=== PATIENT | female | born 1995 | race African-American/Black ===

== ENCOUNTER 2016-05-17 07:27 | Emergency (ER) | payer OTHER ==
[~2016-05-17] VITALS: Ht 165.1 cm; Wt 61.2 kg
[2016-05-17] MEDS ORDERED: NS 1,000 ML IV ONE (08:00)
[2016-05-17] MEDS ORDERED: METOCLOPRAMIDE INJ 10MG/2ML VIAL (J2765) IV ONE (08:00)
[2016-05-17] MEDS ORDERED: MORPHINE 4 MG/ML 1ML SYRINGE IV PRN (08:00)
[2016-05-17 08:33] LABS: BASO % 0.1 % (0.0-1.0); EOS % 0.6 % (0.0-3.0); LARGE UNSTAINED CELL # 0.1 K/mm3 (0.0-0.4); LARGE UNSTAINED CELL % 0.7 % (0.0-4.0); LYMPH # 0.3 K/mm3 (1.5-6.5); LYMPH % 4.4 % (24.0-44.0); MEAN CORPUSCULAR HEMOGLOBIN 26.1 pg (27.0-33.0); MEAN CORPUSCULAR HGB CONC 31.5 g/dl (32.0-36.5); MEAN CORPUSCULAR VOLUME 82.6 fl (80.0-96.0); MONO # 0.2 K/mm3 (0.0-0.8); MONO % 2.4 % (0.0-5.0); NEUTROPHILS # 6.9 K/mm3 (1.8-7.7); NEUTROPHILS % 91.8 % (36.0-66.0); PLATELET COUNT, AUTOMATED 156 k/mm3 (150-450); RED CELL DISTRIBUTION WIDTH 12.7 % (11.5-14.5); WHITE BLOOD COUNT 7.5 K/mm3 (4.0-10.0)
[2016-05-17 08:34] LABS: CONTROL LINE HCG INT CTR LINE PRESENT
[2016-05-17 08:41] LABS: ALBUMIN 4.1 GM/DL (3.2-5.2); ALBUMIN/GLOBULIN RATIO 1.21 (1.00-1.93); ALKALINE PHOSPHATASE 69 U/L (45-117); ALT/SGPT 17 U/L (12-78); ANION GAP 9 MEQ/L (8-16); AST/SGOT 9 U/L (15-37); BILIRUBIN,DIRECT 0.2 MG/DL (0.0-0.2); BILIRUBIN,TOTAL 0.9 MG/DL (0.2-1.0); BLOOD UREA NITROGEN 18 MG/DL (7-18); CARBON DIOXIDE LEVEL 26 MEQ/L (21-32); CHLORIDE LEVEL 107 MEQ/L (98-107); CREATININE FOR GFR 0.84 MG/DL (0.55-1.02); GLUCOSE, FASTING 89 MG/DL (70-105); POTASSIUM SERUM 3.5 MEQ/L (3.5-5.1); SODIUM LEVEL 142 MEQ/L (136-145); TOTAL PROTEIN 7.5 GM/DL (6.4-8.2)
--- NOTE | 2016-05-17 10:24 | REP ---
PELVIC ULTRASOUND: Real-time sonographic evaluation of pelvis performed utilizing transabdominal and endovaginal technique. Bladder measures 8.8 x 6.8 x 8.9 cm. Uterus measures 7.4 x 3.1 x 4.5 cm. Endometrial thickness is 4 mm. There is no endometrial fluid collection. The ovaries are normal in size and echotexture, right ovary measuring 5.0 x 2.4 x 1.9 cm, and left ovary 3.3 x 1.5 x 3.0 cm. There is no adnexal mass or free fluid. There is no evidence of ovarian torsion, with blood flow seen in each ovary with duplex Doppler evaluation, RI of the right ovary 0.66 and left ovary 0.63. IMPRESSION: Negative pelvic ultrasound. Signed by Guanako Colin MD 05/17/2016 04:52 P
[2016-05-17] MEDS ORDERED: KETOROLAC 30 MG/ML VIAL (J1885) IV ONE (10:30)
[2016-05-17] MEDS: GASTROGRAFIN SOLUTION 30ML (Q9963) PO ONE ×2 (13:03→13:04)
[2016-05-17] MEDS ORDERED: ISOVUE-370 76% 100ML VIAL (Q9967) As Ordered ONE (13:06)
[2016-05-17] MEDS ORDERED: GASTROGRAFIN SOLUTION 30ML (Q9963) PO ONE (13:35)
--- NOTE | 2016-05-17 14:09 | REP ---
CT ABDOMEN AND PELVIS WITH IV CONTRAST: CT ABDOMEN AND PELVIS WITH CONTRAST: TECHNIQUE: Axial contrast enhanced images from the lung bases to the pubic symphysis using 100 mL Isovue 370 intravenous contrast material with multiplanar reformations. The visualized lung bases demonstrate no infiltrate. The liver, spleen, gallbladder, adrenals, pancreas and kidneys are unremarkable. There is no hydronephrosis. There is no abdominal aortic aneurysm. I see no adenopathy or free air. There is mild free fluid in the pelvis. There is no bowel wall thickening. There is no evidence of appendicitis. I see no evidence of a pelvic mass. The urinary bladder is grossly unremarkable. There is no anterior abdominal wall defect. IMPRESSION: No evidence of bowel abnormality. No evidence of appendicitis. Mild free fluid in the pelvis. Signed by Guanako Colin MD 05/17/2016 05:06 P
[2016-05-17 14:33] VITALS: BP 112/70
== END 2016-05-17 14:44 | disposition home or self-care (01) ==
LOC: M ED 09:30
DX: R11.2 Nausea with vomiting, unspecified (principal); F17.210 Nicotine dependence, cigarettes, uncomplicated
CPT/HCPCS: 36415; 74177; 76830; 76856; 80048; 80076; 83690; 84703; 85025; 93976; 96361; 96374; 96375; 99282; J1885; J2765; Q9963; Q9967